=== PATIENT | male | born 1960 | race Caucasian/White ===

== ENCOUNTER 2020-10-29 10:06 | Outpatient (CLI) | payer OTHER, SELFPAY | END 2020-10-29 10:07 | disposition home or self-care (01) | LOC: ANHCOVIDVC 10:06 | PROVIDERS: PCP Internal Medicine Infectious Disease | DX: Z23 Encounter for immunization (principal) | CPT/HCPCS: 0001A; 91300 ==

== ENCOUNTER 2020-11-19 10:12 | Outpatient (CLI) | payer OTHER, SELFPAY | END 2020-11-19 10:13 | disposition home or self-care (01) | LOC: ANHCOVIDVC 10:12 | PROVIDERS: PCP Internal Medicine Infectious Disease | DX: Z23 Encounter for immunization (principal) | CPT/HCPCS: 0002A; 91300 ==